=== PATIENT | female | born 1950 ===

== ENCOUNTER 2019-01-21 07:34 | Day surgery (SDC) | payer MEDICARE ==
[2019-01-21 08:53] VITALS: BMI 25.7
[2019-01-21] MEDS ORDERED: Lactated Ringer's 500 ML IV ONE (08:59)
[2019-01-21] MEDS ORDERED: Propofol 10 mg/ml Inj (20 ML) ONE (10:44)
[2019-01-21 11:32] VITALS: RESP 19; O2SAT 98
[2019-01-21 12:06] VITALS: TEMP 97.6
[2019-01-21 12:08] VITALS: BP 118/60; PULSE 74
== END 2019-01-21 12:05 | disposition home or self-care (01) ==
LOC: H.ENDO 07:34
PROVIDERS: ATTEND Internal Medicine Gastroenterology
DX: Z12.11 Encounter for screening for malignant neoplasm of colon (principal); E78.5 Hyperlipidemia, unspecified; E05.90 Thyrotoxicosis, unspecified without thyrotoxic crisis or storm; K64.9 Unspecified hemorrhoids; K31.7 Polyp of stomach and duodenum; K31.89 Other diseases of stomach and duodenum; R10.13 Epigastric pain; K29.50 Unspecified chronic gastritis without bleeding
CPT/HCPCS: 43239; 45378; 88305; J2001; J2704; J7120